=== PATIENT | female | born 1970 | race Caucasian/White ===

== ENCOUNTER 2018-01-29 10:47 | Emergency (ER) | payer OTHER ==
[2018-01-29 12:34] LABS: URINE BLOOD (Dip) POC Trace-intact (NEGATIVE); URINE GLUCOSE (Dip) POC Negative (NEGATIVE); URINE KETONES (Dip) POC Negative (NEGATIVE); URINE LEUKOCYTE EST (Dip) POC Trace (NEGATIVE); URINE NITRITE (Dip) POC Negative (NEGATIVE); URINE TOTAL PROTEIN POC 1+ (NEGATIVE)
[2018-01-29 12:34] LABS: URINE PH (Dip) POC 6.5 (5.0-8.5)
[2018-01-29] MEDS: PHENAZOPYRIDINE 100 MG TAB PO (13:13)
[2018-01-29] MEDS: CEPHALEXIN 500 MG CAP PO (13:13)
[2018-01-29] MEDS: IBUPROFEN 600 MG TAB PO (13:13)
== END 2018-01-29 14:15 | disposition home or self-care (01) ==
LOC: FTE 10:47
DX: N30.00 Acute cystitis without hematuria (principal)
CPT/HCPCS: 81003; 81025; 87591; 99283

== ENCOUNTER 2018-06-29 10:56 | Emergency (ER) | payer OTHER ==
[2018-06-29] MEDS: IBUPROFEN 200 MG TAB PO (11:27)
[2018-06-29] MEDS: ACETAMINOPHEN 500 MG TAB PO (11:28)
[2018-06-29] MEDS: DOXYCYCLINE 100 MG TAB PO (12:02)
== END 2018-06-29 12:07 | disposition home or self-care (01) ==
LOC: FTE 10:56
DX: R50.9 Fever, unspecified (principal)
CPT/HCPCS: 71045; 99283-25